=== PATIENT | male | born 1980 | race Caucasian/White ===

== ENCOUNTER 2023-10-16 13:12 | Outpatient (CLI) | payer OTHER, SELFPAY | END 2023-10-16 13:13 | disposition home or self-care (01) | PROVIDERS: PCP Family Medicine; Visit Provider Family Medicine | DX: Z11.59 Encounter for screening for other viral diseases (principal); Z76.89 Persons encountering health services in other specified circumstances | CPT/HCPCS: 80053; 80061; 86803 ==

== ENCOUNTER 2024-11-12 11:16 | Outpatient (CLI) | payer OTHER, SELFPAY | END 2024-11-12 11:17 | disposition home or self-care (01) | PROVIDERS: PCP Family Medicine; Visit Provider Family Medicine | DX: E78.5 Hyperlipidemia, unspecified (principal); E88.810 Metabolic syndrome | CPT/HCPCS: 80048; 80061 ==